=== PATIENT | male | born 1970 | race Caucasian/White ===

== ENCOUNTER → 2016-09-27 | Outpatient (CLI) | payer BC | END | disposition home or self-care (01) | LOC: C.PATHSPEC 12:01 | PROVIDERS: ATTEND Plastic Surgery | DX: D17.1 Benign lipomatous neoplasm of skin and subcutaneous tissue of trunk (principal) ==

== ENCOUNTER → 2016-10-11 | Outpatient (CLI) | payer BC | END | disposition home or self-care (01) | LOC: C.PATHSPEC 17:26 | PROVIDERS: ATTEND Plastic Surgery | DX: D17.1 Benign lipomatous neoplasm of skin and subcutaneous tissue of trunk (principal) ==

== ENCOUNTER → 2017-01-01 | Outpatient (CLI) | payer BC ==
[~2017-01-01] MED LIST: OPTIRAY 320 IV PRN
--- NOTE | 2017-01-01 15:43 | DIAGNOSTIC IMAGING REPORT ---
ABDOMEN AND PELVIS CT WITH IV AND ORAL CONTRAST CT DOSE: 1039.09 mGycm HISTORY: Left-sided abdominal pain. TECHNIQUE: Multiaxial CT images of the abdomen and pelvis were performed following the use of intravenous and oral contrast. COMPARISON STUDY: None. FINDINGS: The lung bases are clear. The liver, spleen, gallbladder, pancreas, kidneys, and adrenal glands are within normal limits. No bowel wall thickening or obstruction. The pelvic organs are unremarkable. No suspicious lytic or blastic osseous lesions. Tiny fat-containing bilateral inguinal hernias. Hazy appearance of the central mesentery consistent with a mild mesenteric panniculitis. Normal appendix. IMPRESSION: 1. No acute abnormality within the abdomen or pelvis. 2. No bowel wall thickening or obstruction. 3. No fractures within the visualized osseous structures. 4. Hazy appearance of the central mesentery consistent with a mild mesenteric panniculitis. This is of doubtful clinical significance. Electronically signed by: Gabino Banks M.D. 01/01/2017 3:41 PM Dictated Date/Time: 01/01/2017 3:30 PM
== END | disposition home or self-care (01) ==
LOC: C.CTS 13:12
PROVIDERS: ATTEND Nurse Practitioner Family
DX: R10.32 Left lower quadrant pain (principal); R10.12 Left upper quadrant pain

== ENCOUNTER → 2017-05-28 | Outpatient (CLI) | payer BC ==
--- NOTE | 2017-05-28 12:43 | DIAGNOSTIC IMAGING REPORT ---
ABDOMEN FOR HERNIA CLINICAL HISTORY: Left lower quadrant abdominal pain left testicular pain COMPARISON STUDY: No previous studies for comparison. FINDINGS: There is a reducible fat-containing left inguinal hernia. IMPRESSION: Reducible fat-containing left inguinal hernia. Electronically signed by: Freedom Wilde M.D. 05/28/2017 12:42 PM Dictated Date/Time: 05/28/2017 12:41 PM
--- NOTE | 2017-05-28 12:45 | DIAGNOSTIC IMAGING REPORT ---
TESTICULAR ULTRASOUND CLINICAL HISTORY: Left-sided testicular pain COMPARISON STUDY: No previous studies for comparison. FINDINGS: The right testis measures 38 x 44 x 22 mm. The left testis measures 44 x 26 x 33 mm. No intratesticular masses are visualized. There is no evidence of testicular torsion. No epididymal abnormalities are evident. There is a small left-sided varicocele. IMPRESSION: Small left-sided varicocele. Otherwise normal study. No evidence of intratesticular mass. No evidence of testicular torsion. Electronically signed by: Freedom Wilde M.D. 05/28/2017 12:44 PM Dictated Date/Time: 05/28/2017 12:42 PM
== END | disposition home or self-care (01) ==
LOC: C.ULTR 11:49
PROVIDERS: ATTEND Student in an Organized Health Care Education/Training Program
DX: N50.812 Left testicular pain (principal); R10.30 Lower abdominal pain, unspecified

== ENCOUNTER → 2017-08-01 | Outpatient (CLI) | payer BC | END | disposition home or self-care (01) | LOC: C.PATHSPEC 17:19 | PROVIDERS: ATTEND Plastic Surgery | DX: D17.1 Benign lipomatous neoplasm of skin and subcutaneous tissue of trunk (principal) ==

== ENCOUNTER → 2018-04-02 | Outpatient (CLI) | payer OTHER | END | disposition home or self-care (01) | LOC: C.RDSM 09:02 | PROVIDERS: ATTEND Orthopaedic Surgery Sports Medicine | DX: M25.521 Pain in right elbow (principal) ==